=== PATIENT | female | born 1960 | race Caucasian/White ===

== ENCOUNTER 2018-01-03 12:36 | Observation (INO) | payer MEDICAID ==
[~2018-01-03] VITALS: Ht 160 cm; Wt 66.4 kg
--- NOTE | ~2018-01-03 | OP ---
PATIENT NAME: ALECIA SIERRA MEDICAL RECORD: [id number] :60 LOCATION:D.M2 D.2112 ADMISSION DATE:01/03/18 SURGEON: HCUCK SERVIN MD DATE OF OPERATION: 01/05/2018 PROCEDURES: 1. PTCA stent left circumflex. 2. Selective coronary angiography. INDICATION: Angina and coronary artery disease. PROCEDURE IN DETAIL: After informed consent was obtained, after detailed explanation of risks, benefits as well as alternative therapies, the patient was elected to proceed with angiogram and angioplasty. The right femoral area was prepped and draped in normal sterile fashion. The right femoral artery was cannulated via modified Seldinger technique with placement of 6-Guatemalan sheath. All catheters exchanged through this sheath. FINDINGS: The left circumflex has 75% stenosis proximally. This was addressed with a 3.0 x 12 mm Integrity stent. Result was 0% residual stenosis. We relooked at the right coronary artery. From previous intervention, there was no significant stenosis or restenosis. OVERALL IMPRESSION: Successful percutaneous transluminal coronary angioplasty stent of the left circumflex going from 75% initial stenosis to 0% residual. TRANSINT:[id number] Voice Confirmation ID: [id number] DOCUMENT ID: [id number] CHUCK SERVIN MD CC: [id number] DICTATION DATE: 01/05/18 1015 MOSAIC LAYER: 01/05/18 1022 ADM IN [place] [address] [place] [address]
--- NOTE | ~2018-01-03 | HEMODYNAMI ---
PATIENT:ALECIA SIERRA MEDICAL RECORD: [id number] : 60 [id number] AD[facility]ION DATE: 01/03/18 Generatedon:01/04/201813:48 Patient name: ALECIA SIERRA Patient #: [id number] SSN: DO B: 1960 Date of study: 01/04/2018 Page: Of Hemodynamic Procedure Report Patient Data Patient Demographics Procedure consent was obtained First Name: ALECIA Gender: Female Last Name: RIGO : 1960 Patient #: [id number] Age: 57 year(s) Race: Additional ID: [id number] Contact details Address: [address] [place] [address] [email or web address] State: [place] [facility] [place]: [address] Past Medical History Allergies Allergen Reaction Date Comments Reported Codeine 01/04/2018 Other allergy 01/04/2018 WELLBUTRIN, BUSPAR, LATEX, XANAX, ARITHROMYCIN Admission Admission Data Admission Date: 01/03/2018 Admission Time: 17:31 Room #: D.2112 Lab Results Lab Result Date: 01/04/2018 Lab Result Time: 0:00 Biochemistry Name Units Result Min Max BUN mg/dl 16 --(---*)-- 7 18 Creatinine mg/dl 0.9 --(-*--)-- 0.6 1.3 CBC Name Units Result Min Max Hemoglobin g/dl 11.1 *-(----)-- 13.5 17.5 Procedure Procedure Types Cath Procedure Diagnostic Procedure LHC LHC w/Coronaries PCI Procedure Coronary Stent Coronary Stent Initial Procedure Description Procedure Date Procedure Date: 01/04/2018 Procedure Start Time: 13:19 Procedure End Time: 13:47 Procedure Staff Name Function Alberto Stevenson MD Performing Physician Tiburcio Joya RT Monitor Rosaline Hitchcock RT Scrub Elisha Holloway RN Nurse Procedure Data Cath Procedure Fluoroscopy Diagnostic fluoroscopy Total fluoroscopy Time: 5.7 time: 5.7 min min Diagnostic fluoroscopy Total fluoroscopy dose: dose: 137.94 mGy 137.94 mGy Contrast Material Contrast Material Type Amount (ml) Isovue 300 109 Entry Location Entry Primary Successful Side Size Upsize Upsize Entry Closure Javed ccessful Closure Location (Fr) 1 (Fr) 2 (Fr) Remarks Device Remarks Radial Right 6 Fr Mechanical artery Short Compression Estimated blood loss: 10 ml Diagnostic catheters Device Type Used For End Catheter Placement DIAGNOSTIC [place] 110cm 5 Procedure Fr catheter ([id number]) Procedure Medications Medication Administration Route Dosage Oxygen NC 2 l/min Lidocaine 2% added to field 20 Heparin Flush Bag added to field 2 bags (1000units/500ml NS) 0.9% NaCl I.V. 100 ml/hr Versed I.V. 1 mg Fentanyl I.V. 50 mcg Versed I.V. 1 mg Fentanyl I.V. 50 mcg Radial Cocktail I.A. 1 syringe (Verapomil 2mg/Nitro 400mcg/Heparin 1500units) Versed I.V. 1 mg Fentanyl I.V. 50 mcg Nitroglycerin IC/IA I.C. 50 mcg Heparin Bolus I.V. 6500 units Versed I.V. 1 mg Fentanyl I.V. 50 mcg Plavix P.O. 600 mg Hemodynamics Rest HGB: 11.1 (g/dl) Heart Rate: 83 (bpm) Pressure Samples Time Site Value (mmHg) Purpose Heart Use Rate(bpm) 13:22 LV 92/9,13 Snapshot 77 Gradients Valve Time Site Site Mean SEP/DFP Peak To Heart Use 1 2 (mmHg) (sec/min) Peak Rate (mmHg) (bpm) Aortic 13:22 LV AO 77 Snapshots Pre Cath Intra NCS Post Cath Vital Signs Time Heart Resp SPO2 etCO2 NIBP (mmHg) Rhythm Pain Sedation Rate (ipm) (%) (mmHg) Status Level (bpm) 12:59:50 74 20 100 28.5 146/80(127) NSR 0 (11) 10(A) , No pain 13:04:02 68 18 96 37.5 123/74(101) NSR 0 (11) 10(A) , No pain 13:08:08 70 17 100 24.7 132/73(107) NSR 0 (11) 10(A) , No pain 13:12:18 73 16 100 33.7 124/71(101) NSR 0 (11) 10(A) , No pain 13:16:26 71 15 99 37.5 125/73(83) NSR 0 (11) 10(A) , No pain 13:20:35 70 17 99 30.5 115/67(91) NSR 0 (11) 9(A) , No pain 13:25:43 83 17 96 41.2 121/73(90) NSR 0 (11) 9(A) , No pain 13:29:49 81 16 98 44.2 122/71(99) NSR 0 (11) 9(A) , No pain 13:33:54 80 16 99 45 118/74(96) NSR 0 (11) 9(A) , No pain 13:37:58 82 15 100 43.5 124/75(87) NSR 0 (11) 9(A) , No pain 13:42:04 80 10 100 38.2 119/71(107) NSR 0 (11) 10(A) , No pain 13:46:57 83 13 100 44.2 127/73(106) NSR 0 (11) 9(A) , No pain Medications Time Medication Route Dose Verified Delivered Reason Note s Effectiveness by by 13:05:39 Oxygen NC 2 l/min Alberto Buffie used for Antwan Holloway RN procedure 13:05:46 Lidocaine 2% added 20ml Alberto Alberto for local to vial Antwan Stevenson MD anesthetic field 13:05:50 Heparin Flush added 2 bags Alberto Alberto used for Bag to Antwan Stevenson MD procedure (1000units/500ml field NS) 13:07:14 0.9% NaCl I.V. 100 Alberto Buffie Per physician ml/hr Antwan Holloway RN 13:14:28 Versed I.V. 1 mg Alberto Buffie for sedation Antwan Holloway RN 13:14:36 Fentanyl I.V. 50 mcg Alberto Buffie for sedation Antwan Holloway RN 13:18:16 Versed I.V. 1 mg Alberto Buffie for sedation Antwan Holloway RN 13:18:19 Fentanyl I.V. 50 mcg Alberto Buffie for sedation Antwan Holloway RN 13:21:23 Radial Cocktail I.A. 1 Alberto Alberto for (Verapomil syringe Antwan Stevenson MD vasodilation 2mg/Nitro 400mcg/Heparin 1500units) 13:21:29 Versed I.V. 1 mg Alberto Buffie for sedation Antwan Holloway RN 13:21:34 Fentanyl I.V. 50 mcg Alberto Buffie for sedation Antwan Holloway RN 13:33:45 Nitroglycerin I.C. 50 mcg Alberto Alberto for IC/IA Antwan Stevenson MD vasodilation 13:34:00 Heparin Bolus I.V. 6,500 Alberto Buffie for veri fied units Antwan Holloway RN anticoagulation with dr stevenson 13:37:49 Versed I.V. 1 mg Alberto Buffie for sedation Antwan Holloway RN 13:37:52 Fentanyl I.V. 50 mcg Alberto Buffie for sedation Antwan Holloway RN 13:46:03 Plavix P.O. 600 mg Alberto Buffie for Antwan Holloway RN antiplatelet therapy Procedure Log Time Note 12:35:30 Informed consent obtained and on chart 12:35:32 Diagnostic Cath Status : Elective 12:36:10 Tiburcio THAKKAR(R) (CV) sent for patient. Start room use. 12:36:12 Time tracking: Regular hours 12:36:20 Plan of Care:Hemodynamics will remain stable., Cardiac rhythm will remain stable., Comfort level will be maintained., Respiratory function will remain adequate., Patient/ family verbilizes understanding of procedure., Procedure tolerated without complication., Recovers from procedure without complications.. 12:52:00 Patient received from PCU to [facility] 3 Alert and oriented. Tansferred to table in Supine position. 12:52:01 Warm blankets applied, and amara hugger turned on for patient comfort. 12:52:02 Correct patient and procedure confirmed by team. 12:52:02 ECG and BP/O2 sat monitors applied to patient. 12:52:04 Full Disclosure recording started 12:58:43 Vital chart was started 13:03:07 Baseline sample Acquired. 13:03:11 Rhythm: sinus rhythm 13:03:33 H&P Date Dictated: 01/03/2018 Within 30 days and on chart.. 13:03:35 Pre-procedure instructions explained to patient. 13:03:35 Pre-op teaching completed and patient verbalized understanding. 13:03:39 Family in waiting room. 13:03:48 Patient NPO since Breakfast. 13:04:55 Patient allergic to Codeine 13:05:39 Oxygen 2 l/min NC was administered by Elisha Holloway RN; used for procedure; 13:05:46 Lidocaine 2% 20ml vial added to field was administered by Alberto Stevenson MD; for local anesthetic; 13:05:50 Heparin Flush Bag (1000units/500ml NS) 2 bags added to field was administered by Alberto Stevenson MD; used for procedure; 13:06:09 Patient allergic to Other allergy WELLBUTRIN, BUSPAR, LATEX, XANAX, ARITHROMYCIN 13:06:15 Is the patient allergic to Iodine/contrast media? No. 13:06:18 Is patient on blood thinner?No 13:06:25 Patient diabetic? No. 13:06:38 Patient not . Patient is over age 55. 13:06:40 ----Pre-sedation anethsthesia assessment.---- 13:06:42 Previous problem with sedation/anesthesia? No ? 13:06:44 Snore? Yes 13:06:46 Sleep apnea? No 13:06:47 Deviated septum? No 13:06:50 Opens mouth fully? Yes 13:06:51 Sticks out tongue? Yes 13:06:53 Airway obstruction? No ? 13:07:03 Dentures? Yes PARTIAL IN 13:07:13 Pre procedure: right dorsailis pedis pulse 2+ Normal; easily identifiable; not easily obliterated 13:07:14 0.9% NaCl 100 ml/hr I.V. was administered by Elisha Holloway RN; Per physician; 13:07:17 Modified Josep's test Ulnar < 7 seconds 13:07:21 Patient pain scale 0/10 ?. 13:07:49 IV patent on arrival in left antecubital with 0.9% NaCl at [facility]. 13:08:22 Lab Result : Creatinine 0.9 mg/dl 13:08:22 Lab Result : BUN 16 mg/dl 13:08:22 Lab Result : Hemoglobin 11.1 g/dl 13:08:26 Lab results completed and on chart. 13:08:31 Right Radial & Right Groin area was prepped with chlora-prep and draped in sterile fashion 13:08:33 Alarms reviewed by R. N. 13:08:33 Sharps counted by scrub and verified by R.N. 13:09:21 Use device set Radial Dx or PCI 13:09:22 ACIST Syringe (21446) opened to sterile field. 13:09:24 Medline Cath Pack ([id number]) opened to sterile field. 13:09:24 Bag Decanter (2002S) opened to sterile field. 13:09:26 SHEATH 6FR Slender ([id number]) opened to sterile field. 13:09:27 DIAGNOSTIC WIRE .035 260cm J wire (835148) opened to sterile field. 13:09:28 ACIST Hand Control (23859) opened to sterile field. 13:09:29 ACIST Manifold (52172) opened to sterile field. 13:09:29 Tegaderm 4 x 4 (1626W) opened to sterile field. 13:09:30 MBrace Wrist Support ([id number]) opened to sterile field. 13:12:55 Zero performed for pressure channel P1 13:13:13 Zero performed for pressure channel P1 13:13:29 Physician arrived 13:13:30 --------ALL STOP TIME OUT------ 13:13:30 Final Timeout: patient, procedure, and site verified with staff and physician. All members of the team are in agreement. 13:13:33 Right Radial & Right Groin site verified by team. 13:13:37 Physical assessment completed. ASA score P 2 - A patient with mild systemic disease as per Alberto Stevenson MD. 13:13:44 Sedation plan: IV Moderate Sedation Medication:Versed, Fentanyl 13:14:28 Versed 1 mg I.V. was administered by Elisha Holloway RN; for sedation; 13:14:36 Fentanyl 50 mcg I.V. was administered by Elisha Holloway RN; for sedation; 13:18:16 Versed 1 mg I.V. was administered by Elisha Holloway RN; for sedation; 13:18:19 Fentanyl 50 mcg I.V. was administered by Elisha Holloway RN; for sedation; 13:19:23 Procedure started. 13:19:32 Local anesthetic to right radial artery with Lidocaine 2% by Alberto Stevenson MD.INITIAL ACCESS ONLY 13:21:23 Radial Cocktail (Verapomil 2mg/Nitro 400mcg/Heparin 1500units) 1 syringe I.A. was administered by Alberto Stevenson MD; for vasodilation; 13:21:29 Versed 1 mg I.V. was administered by Elisha Holloway RN; for sedation; 13::33 A 6 Fr Short sheath was inserted into the Right Radial artery 13::34 Fentanyl 50 mcg I.V. was administered by Elisha Holloway RN; for sedation; 13:22:03 A DIAGNOSTIC [place] 110cm 5 Fr catheter ([id number]) was advanced over the wire and used for Procedure. 13::26 LV hemodynamics recorded. 13::28 LV gram done using MONGE 13::36 EF : 60 % 13:23:19 LCA angiography performed. 13:24:33 RCA angiography performed. 13:24:45 Catheter removed. 13:24:46 Proceeding to intervention. 13:25:28 GUIDE 6FR AR 1.0 catheter ([id number]) opened to sterile field. 13:25:30 TUBING High Pressure Extension Tubing (Antwan) (CP5104I) opened to sterile field. 13:25:33 INFLATOR Merit BasixCompak (HZ4237) opened to sterile field. 13:25:56 BMW 300cm [place] 2 J wire ([id number]) opened to sterile field. 13:28:32 6 Fr AR 1 guide catheter was inserted over the wire 13:29:41 Guide Catheter removed. unable to cannulate vessel. 13:30:39 GUIDE 6FR 3DRC catheter ([id number]) opened to sterile field. 13:31:06 6 Fr 3 DRC guide catheter was inserted over the wire 13:33:14 BMW wire advanced. 13:33:27 Wire advanced across lesion. 13:33:45 Nitroglycerin IC/IA 50 mcg I.C. was administered by Alberto Stevenson MD; for vasodilation; 13:34:00 Heparin Bolus 6,500 units I.V. was administered by Elisha Holloway RN; for anticoagulation; verified with dr stevenson 13:37:49 Versed 1 mg I.V. was administered by Elisha Holloway RN; for sedation; 13:37:52 Fentanyl 50 mcg I.V. was administered by Elisha Holloway RN; for sedation; 13:39:58 Inflation Number: 1 A INTEGRITY OTW 2.5 X 18 stent ([id number]) was prepped and advanced across the Mid RCA. The stent was deployed at 16 RADHA for 0:10 (min:sec). 13:40:46 Stent catheter was removed intact over wire. 13:40:47 Wire removed. 13:40:48 Guide catheter removed. 13:41:12 TR BAND Standard ([id number]) opened to sterile field. 13:42:25 Sheath removed intact; hemostasis achieved with Mechanical Compression to the Right Radial artery. 13:42:53 Procedure ended.(Physican Out) 13:43:21 Fluoroscopy time 05.70 minutes. 13:43:31 Flurop Dose total: 137.94 13:43:31 Fluoroscopy dose: 137.94 mGy 13:43:52 Contrast amount:Isovue 300 109ml. 13:43:54 Sharps counted by scrub and verified by R.N. 13:44:35 Procedure type changed to Cath procedure, Diagnostic procedure, LHC, LHC w/Coronaries, PCI procedure, Coronary Stent, Coronary Stent Initial 13:44:48 TR band inflated with 12cc of air. 13:44:49 Insertion/operative site no bleeding no hematoma. 13:44:55 Post right radial artery:stable 13:45:03 Post-procedure physical assessment completed. ASA score P 2 - A patient with mild systemic disease as per Alberto Stevenson MD. 13:45:06 Post procedure rhythm: sinus rhythm 13:45:09 Estimated blood loss: 10 ml 13:45:11 Post procedure instruction explained to patient.Patient verbalizes understanding. 13:45:12 Patient needs reinforcement of post procedure teaching. 13:45:12 Procedure and supply charges have been captured, reviewed, submitted and are correct. 13:46:03 Plavix 600 mg P.O. was administered by Elisha Holloway RN; for antiplatelet therapy; 13:47:08 Vital chart was stopped 13:47:08 See physician's report for complete and final results. 13:47:11 Report given to PCU. 13:47:15 Patient transfered to PCU with Bed. 13:47:17 Procedure ended. 13:47:17 Full Disclosure recording stopped 13:47:21 End room use (Document Last) Intervention Summary Intervention Notes Time ActionType Lesion and Equipment Action# Pressure Duration Attributes Used 13:39:58 Place stent Mid RCA INTEGRITY 1 16 00:10 OTW 2.5 X 18 stent ([id number]) Device Usage Item Name Manufacture Quantity Catalog Hospital Part Current Minima l Lot# / Number Charge Number Stock Stock Serial# Code ACIST Acist 1 98359 722837 728464 722513 20 Syringe Medical (32852) Systems Inc Medline Cath Cardinal 1 [id number] 042710 63872 615646 5 Pack Health ([id number]) Bag Decanter Microtek 1 2001S 530331 15334 779048 5 () Medical Inc. SHEATH 6FR Terumo 1 [id number] 572177 623145 830863 40 Slender ([id number]) DIAGNOSTIC St Xander 1 772642 733938 236753 581253 30 WIRE .035 260cm J wire (987162) ACIST Hand Acist 1 53879 266505 992670 390097 5 Control Medical (75052) Systems Inc ACIST Acist 1 65316 844131 322985 491531 5 Manifold Medical (62671) Systems Inc Tegaderm 4 x 3M 1 1626W 653077 447412 107700 5 4 (1626W) MBrace Wrist Advanced 1 140-0250-00 267386 19741 122390 5 Support Vascular (109129339) Dynamics DIAGNOSTIC Terumo 1 40-5013 592991 154162 360381 5 [place] 110cm 5 Fr catheter (942396) GUIDE 6FR AR Medtronic 1 [id number] 162769 20033 973252 1 1.0 catheter ([id number]) TUBING High Merit 1 [id number] 112914 47480 945598 10 Pressure Medical Extension Tubing (Stevenson) (VG3240K) INFLATOR Merit 1 SU6597 455956 511006 461750 15 Merit Medical BasixCompak (NB8726) BMW 300cm Herbert 1 [id number] 372208 730205 285912 5 [place] 2 Vascular J wire (5286764O) GUIDE 6FR Medtronic 1 [id number] 138345 239380 830252 1 3DRC catheter (BA48XGB) INTEGRITY Medtronic 1 [id number] 087225 616573 7 [id number] OTW 2.5 X 18 stent ([id number]) TR BAND Terumo 1 [id number] 165897 488198 128906 40 Standard ([id number]) Signature Audit [place] Stage Time Signature Unsigned Intra-Procedure 01/04/2018 Tiburcio Joya 1:47:51 PM RT(R) (CV) Signatures Monitor : Tiburcio Joya RT Signature : Date : Time : [place] [address] [place] [address]
--- NOTE | ~2018-01-03 | DS ---
PATIENT:ALECIA ROBLEDO :60 MEDICAL RECORD: [id number] DISCHARGE SUMMARY ADMISSION DATE: 01/03/18 DISCHARGE DATE: DATE OF SERVICE: 01/05 DIAGNOSES: 1. Angina. 2. Coronary artery disease. 3. Percutaneous transluminal coronary angioplasty stent right coronary artery and left circumflex this admission. HOSPITAL COURSE: Ms. Robledo presents with anginal symptomatology, found to have 3-vessel coronary artery disease, underwent successful PTCA stent of above territories, discharged home with the addition of aspirin and Plavix to her medical regimen and to follow up with [facility] in 1 month. TRANSINT:[id number] Voice Confirmation ID: [id number] DOCUMENT ID: [id number] CHUCK SERVIN MD CC: [id number] DICTATION DATE: 01/05/18 1013 ANIMAL CRUELTY INVESTIGATION SUPERVISOR: 01/05/18 1024 ADM IN [facility] [address] [place] [address]
--- NOTE | ~2018-01-03 | HEMODYNAMI ---
PATIENT:ALECIA SIERRA MEDICAL RECORD: [id number] : 60 LOCATION:[facility] D[facility] [id number] ADMISSION DATE: 01/03/18 Generatedon:01/05/201810:15 Patient name: ALECIA SIERRA Patient #: [id number] SSN: DO B: 1960 Date of study: 01/05/2018 Page: Of Hemodynamic Procedure Report Patient Data Patient Demographics Procedure consent was obtained First Name: ALECIA Gender: Female Last Name: RIGO : 1960 Patient #: [id number] Age: 57 year(s) Race: Additional ID: [id number] Contact details Address: [address] [place] [address] [employer] [address] State: [place] City: [facility] Zip code: [address] Past Medical History Allergies Allergen Reaction Date Comments Reported Codeine 01/04/2018 Other allergy 01/04/2018 WELLBUTRIN, BUSPAR, LATEX, XANAX, ARITHROMYCIN Admission Admission Data Admission Date: 01/03/2018 Admission Time: 17:31 Arrival Date: 01/05/2018 Arrival Time: 0:00 Admit Source: Other Insurance Payor: Medicaid Room #: D.2112 Weight (lbs.): 145.51 Weight (kg.): 66 Lab Results Lab Result Date: 01/04/2018 Lab Result Time: 0:00 Biochemistry Name Units Result Min Max BUN mg/dl 16 --(---*)-- 7 18 Creatinine mg/dl 0.9 --(-*--)-- 0.6 1.3 CBC Name Units Result Min Max Hemoglobin g/dl 11.1 *-(----)-- 13.5 17.5 Procedure Procedure Types Cath Procedure Diagnostic Procedure LHC Coronaries only FFR/IVUS Intra-Coronary IVUS Initial PCI Procedure Coronary Stent Coronary Stent Initial Procedure Description Procedure Date Procedure Date: 01/05/2018 Procedure Start Time: 9:59 Procedure End Time: 10:12 Procedure Staff Name Function Thien Ruff MD Performing Physician Michelle Nicole RT Monitor Rosaline Hitchcock RT Scrub Elisha Holloway RN Nurse Danielle Wilkinosn RN Nurse Procedure Data Cath Procedure Fluoroscopy Diagnostic fluoroscopy Total fluoroscopy Time: 2.9 time: 2.9 min min Diagnostic fluoroscopy Total fluoroscopy dose: 157 dose: 157 mGy mGy Contrast Material Contrast Material Type Amount (ml) Isovue 300 53 Entry Location Entry Primary Successful Side Size Upsize Upsize Entry Closure Succes sful Closure Location (Fr) 1 (Fr) 2 (Fr) Remarks Device Remarks Femoral Right 6 Fr Exoseal artery Short Estimated blood loss: 5 ml Diagnostic catheters Device Type Used For End Catheter Placement DIAGNOSTIC 3DRC 5Fr Right Coronary catheter ([id number]) Angiography Procedure Complications No complications Procedure Medications Medication Administration Route Dosage 0.9% NaCl I.V. 100 ml/hr Oxygen NC 2 l/min Lidocaine 2% added to field 20 Heparin Flush Bag added to field 2 bags (1000units/500ml NS) Plavix P.O. 75 mg Fentanyl I.V. 100 mcg Versed I.V. 2 mg Heparin Bolus I.V. 4000 units Versed I.V. 1 mg Fentanyl I.V. 50 mcg Fentanyl I.V. 50 mcg Versed I.V. 1 mg Hemodynamics Rest HGB: 11.1 (g/dl) Heart Rate: 83 (bpm) Snapshots Pre Cath Intra NCS Post Cath Vital Signs Time Heart Resp SPO2 etCO2 NIBP (mmHg) Rhythm Pain Sedation Rate (ipm) (%) (mmHg) Status Level (bpm) 9:49:31 85 17 100 30.7 136/74(105) NSR 0 (11) 10(A) , No pain 9:54:12 81 16 100 29.2 129/70(108) NSR 0 (11) 10(A) , No pain 9:58:50 73 16 98 11.2 113/66(91) NSR 0 (11) 10(A) , No pain 10:03:27 83 18 98 0 101/65(83) NSR 0 (11) 9(A) , No pain 10:08:01 86 16 98 26.9 111/62(95) NSR 0 (11) 9(A) , No pain 10:12:40 86 18 100 12.7 97/54(81) NSR 0 (11) 10(A) , No pain Medications Time Medication Route Dose Verified Delivered Reason Not es Effectiveness by by 9:42:55 0.9% NaCl I.V. 100ml/hr Thien Santos used for Speedy Wilkinson RN procedure 9:43:05 Oxygen NC 2 l/min Thien Santos Per physician Speedy Wilkinson RN 9:43:15 Lidocaine 2% added 20ml Thien Neumann for local to vial Speedy Ruff MD anesthetic field 9:43:21 Heparin Flush added 2 bags Thien Neumann used for Bag to Speedy Ruff MD procedure (1000units/500ml field NS) 9:43:34 Plavix P.O. 75 mg Thien Santos for Speedy Wilkinson RN antiplatelet therapy 10:00:44 Fentanyl I.V. 100 mcg Thien Santos for sedation Speedy Wilkinson RN 10:00:52 Versed I.V. 2 mg Thien Santos for sedation Speedy Wilkinson RN 10:00:53 Heparin Bolus I.V. 4000 Thien Santos for adarsh ified units Speedy Wilkinson RN anticoagulation by 10:02:28 Versed I.V. 1 mg Thien Santos for sedation adarsh suzie Wilkinson RN by 10:02:51 Fentanyl I.V. 50 mcg Thien Santos for sedation adarsh suzie Wilkinson RN by 10:05:37 Fentanyl I.V. 50 mcg Thien Santos for sedation Speedy Wilkinson RN 10:10:22 Versed I.V. 1 mg Thien Santos for sedation Speedy Wilkinson RN Procedure Log Time Note 9:29:53 Elisha Holloway RN sent for patient. Start room use. 9:29:54 Time tracking: Call back 9:30:00 Plan of Care:Hemodynamics will remain stable., Cardiac rhythm will remain stable., Comfort level will be maintained., Respiratory function will remain adequate., Patient/ family verbilizes understanding of procedure., Procedure tolerated without complication., Recovers from procedure without complications.. 9:39:09 Patient received from PCU to CCL 1 Alert and oriented. Tansferred to table in Supine position. 9:39:10 Warm blankets applied, and amara hugger turned on for patient comfort. 9:39:11 Correct patient and procedure confirmed by team. 9:39:12 Signed procedure consent form obtained from patient. 9:39:13 ECG and BP/O2 sat monitors applied to patient. 9:39:14 Full Disclosure recording started 9:42:40 Procedure type changed to Cath procedure, Diagnostic procedure, LHC, Coronaries only, FFR/IVUS, Intra-Coronary IVUS Initial, PCI procedure, Coronary Stent, Coronary Stent Initial 9:42:55 0.9% NaCl 100ml/hr I.V. was administered by Danielle Wilkinson RN; used for procedure; 9:43:05 Oxygen 2 l/min NC was administered by Danielle Wilkinson RN; Per physician; 9:43:15 Lidocaine 2% 20ml vial added to field was administered by Thien Ruff MD; for local anesthetic; 9:43:21 Heparin Flush Bag (1000units/500ml NS) 2 bags added to field was administered by Thien Ruff MD; used for procedure; 9:43:34 Plavix 75 mg P.O. was administered by Danielle Wilkinson RN; for antiplatelet therapy; 9:48:39 Vital chart was started 9:48:41 Baseline sample Acquired. 9:48:45 Rhythm: sinus rhythm 9:48:54 H&P Date Dictated: 01/05/2018 Within 30 days and on chart.. 9:48:55 Pre-procedure instructions explained to patient. 9:48:56 Pre-op teaching completed and patient verbalized understanding. 9:48:57 Family in waiting room. 9:48:58 Patient NPO since Midnight. 9:49:01 Is the patient allergic to Iodine/contrast media? No. 9:49:02 Was the patient premedicated? No 9:49:03 Is patient on blood thinner?Yes 9:49:06 ACC The patient was administered the following blood thiners within the last 24 hours: ACCPlavix 9:49:19 Patient diabetic? No. 9:49:22 Previous problem with sedation/anesthesia? No ? 9:49:24 Snore? Yes 9:49:25 Sleep apnea? No 9:49:26 Deviated septum? No 9:49:28 Opens mouth fully? Yes 9:49:29 Sticks out tongue? Yes 9:49:31 Airway obstruction? No ? 9:49:36 Dentures? Yes in tight 9:49:41 Pre procedure: right dorsailis pedis pulse 2+ Normal; easily identifiable; not easily obliterated 9:49:43 Pre procedure: left dorsailis pedis pulse 2+ Normal; easily identifiable; not easily obliterated 9:49:45 Patient pain scale 0/10 ?. 9:49:58 IV patent on arrival in left antecubital with 0.9% NaCl at O. 9:50:01 Lab results completed and on chart. 9:50:05 Right groin area was prepped with chlora-prep and draped in sterile fashion 9:50:07 Alarms reviewed by R. N. 9:50:07 Sharps counted by scrub and verified by R.N. 9:53:17 Diagnostic Cath Status : Elective 9:54:44 Admit Source: Other 9:54:46 Arrival Date: 01/05/2018 12:00:00 AM 9:54:53 Patient Weight : 145.51 lbs 9:55:01 Insurance Payor : Medicaid 9:55:11 Physician paged 9:56:38 Zero performed for pressure channel P1 9:56:57 Zero performed for pressure channel P1 9:57:58 Physician arrived 9:57:59 --------ALL STOP TIME OUT------ 9:57:59 Final Timeout: patient, procedure, and site verified with staff and physician. All members of the team are in agreement. 9:58:04 Right groin site verified by team. 9:58:08 Physical assessment completed. ASA score P 2 - A patient with mild systemic disease as per Thien Ruff MD. 9:58:14 Sedation plan: IV Moderate Sedation Medication:Versed, Fentanyl 9:58:29 Use device set Femoral Dx 9:58:30 ACIST Syringe (67895) opened to sterile field. 9:58:31 Bag Decanter (2001S) opened to sterile field. 9:58:32 Medline Cath Pack ([id number]) opened to sterile field. 9:58:34 DIAGNOSTIC WIRE .035 260cm J wire (537802) opened to sterile field. 9:58:35 ACIST Manifold (89640) opened to sterile field. 9:58:37 Tegaderm 4 x 4 (1626W) opened to sterile field. 9:58:59 SHEATH 6FR [place] (HBN366) opened to sterile field. 9:59:22 GRAPHIX 182cm guide wire ([id number]) opened to sterile field. 9:59:36 INFLATOR Merit Rosek (LI7691) opened to sterile field. 9:59:49 Procedure started. 9:59:52 Local anesthetic to right femoral artery with Lidocaine 2% by Thien Ruff MD.INITIAL ACCESS ONLY 10:00:03 A 6 Fr Short sheath was inserted into the Right Femoral artery 10:00:44 Fentanyl 100 mcg I.V. was administered by Danielle Wilkinson RN; for sedation; 10:00:52 Versed 2 mg I.V. was administered by Danielle Wilkinson RN; for sedation; 10:00:53 Heparin Bolus 4000 units I.V. was administered by Danielle Wilkinson RN; for anticoagulation; verified by 10:02:00 A DIAGNOSTIC 3DRC 5Fr catheter ([id number]) was advanced over the wire and used for Right Coronary Angiography. 10:02:13 RCA angiography performed. 10:02:14 Catheter removed. 10:02:20 GUIDE 6FR XB 3.5 catheter ([id number]) opened to sterile field. 10:02:28 Versed 1 mg I.V. was administered by Danielle Wilkinson RN; for sedation; verified by 10:02:32 6 Fr xb 3.5 guide catheter was inserted over the wire 10:02:51 Fentanyl 50 mcg I.V. was administered by Danielle Wilkinson RN; for sedation; verified by 10:02:51 LCA angiography performed. 10:02:54 Injector settings: Ml/sec: 3, Volume: 6, 10:03:39 pt graphix wire advanced. 10:05:30 Inflation Number: 1 A INTEGRITY RX 3.0 x 12 stent ([id number]) was prepped and advanced across the Prox CX. The stent was deployed at 13 RADHA for 0:10 (min:sec). 10:05:36 Stent catheter was removed intact over wire. 10:05:37 Fentanyl 50 mcg I.V. was administered by Danielle Wilkinson RN; for sedation; 10:05:40 Wire removed. 10:05:41 Guide catheter removed. 10:05:44 GUIDE 6FR JL 3.5 guide catheter ([id number]) opened to sterile field. 10:05:52 6 Fr jl 3.5 guide catheter was inserted over the wire 10:06:06 pt graphix wire advanced. 10:07:48 Wire advanced across lesion. 10:07:57 [place] IVUS Catheter (25591L) opened to sterile field. 10:08:17 IVUS catheter advanced over wire. 10:09:43 IVUS catheter removed over wire. 10:10:04 EXOSEAL 6Fr (EX600) opened to sterile field. 10:10:11 Wire removed. 10:10:12 Guide catheter removed. 10:10:20 Sheath removed intact; hemostasis achieved with Exoseal to the Right Femoral artery. 10:10:22 Versed 1 mg I.V. was administered by Danielle Wilkinson RN; for sedation; 10:10:26 Procedure ended.(Physican Out) 10:11:30 Fluoroscopy time 02.90 minutes. 10:11:38 Flurop Dose total: 157 10:11:38 Fluoroscopy dose: 157 mGy 10:11:43 Contrast amount:Isovue 300 53ml. 10:11:44 Sharps counted by scrub and verified by R.N. 10:11:47 Insertion/operative site no bleeding no hematoma. 10:11:49 Post-op/insertion site Right Femoral artery dressed using a 4 x 4 and Tegaderm. 10:11:51 Post right femoral artery:stable 10:11:54 Post Procedure Pulses reassessed and unchanged 10:11:57 Post procedure rhythm: unchanged. 10:12:06 Estimated blood loss: 5 ml 10:12:08 Post procedure instruction explained to patient.Patient verbalizes understanding. 10:12:09 Patient needs reinforcement of post procedure teaching. 10:12:10 Procedure and supply charges have been captured, reviewed, submitted and are correct. 10:12:14 Procedure Complication : No complications 10:12:16 Vital chart was stopped 10:12:17 See physician's report for complete and final results. 10:12:28 Report given to Pre/Post Procedure Room. 10:12:32 Patient transfered to [facility] with Stretcher. 10:12:34 Procedure ended. 10:12:34 Full Disclosure recording stopped 10:12:41 ACC-PCI Only Patient was given prescriptions, or instructed by Thien Ruff MD to start/continue the following medications upon discharge: Plavix 10:12:43 End room use (Document Last) 10:14:59 10 mins total sedation time Intervention Summary Intervention Notes Time ActionType Lesion and Equipment Action# Pressure Duration Attributes Used 10:05:30 Place stent Prox CX INTEGRITY RX 1 13 00:10 3.0 x 12 stent ([id number]) Device Usage Item Name Manufacture Quantity Catalog Number Hospital Part Current Mini mal Lot# / Charge Number Stock Stock Serial# Code ACIST Acist 1 45263 773592 790401 140472 20 Syringe Medical (18101) Systems Inc Bag Decanter Microtek 1 2002S 640135 69635 868062 5 (2001S) Medical Inc. Medline Cath Cardinal 1 [id number] 536167 41787 535686 5 Pack Health ([id number]) DIAGNOSTIC St Xander 1 572231 930103 744680 646663 30 WIRE .035 260cm J wire (687666) ACIST Acist 1 33777 127733 519411 181371 5 Manifold Medical (14058) Systems Inc Tegaderm 4 x 3M 1 1626W 460960 217584 045178 5 4 (1626W) SHEATH 6FR Terumo 1 DDK470 561176 968942 094939 40 [place] (GHD598) GRAPHIX [place] 1 [id number] 106278 210138 280385 5 182cm guide Scientific wire ([id number]) INFLATOR Merit 1 IT2068 020334 747629 723146 15 [facility] Medical BasixCompak (AQ1411) DIAGNOSTIC Cardinal 1 [id number] 330203 696916 171403 9 3DRC 5Fr Health catheter (981734G) GUIDE 6FR XB Cardinal 1 [id number] 868983 407352 296989 2 3.5 catheter Health (99087988) INTEGRITY RX Medtronic 1 [id number] 451935 971753 792920 5 [id number] 3.0 x 12 stent ([id number]) GUIDE 6FR JL Medtronic 1 [id number] 528028 47913 119378 1 3.5 guide catheter ([id number]) [place] 1 [id number] 540409 118479 406521 8 [place] E[place] IVUS Catheter (78168G) EXOSEAL 6Fr Cardinal 1 EX600 957620 828998 656392 10 (EX600) Health Signature Audit [place] Stage Time Signature Unsigned Intra-Procedure 01/05/2018 Michelle Nicole 10:15:33 AM RT(R) Signatures Monitor : Michelle Nicole RT Signature : Date : Time : [address] [address]
[2018-01-03 13:12] LABS: BASOPHILS 0.3 % (0-2); EOSINOPHILS 0.9 % (0-7); HEMATOCRIT 38.9 % (36.0-48.0); HEMOGLOBIN 12.3 g/dL (12-16); LYMPHOCYTES 20.5 % (15-50); MCH 27.6 pg (26.0-34.0); MCHC 31.6 g/dL (31.0-37.0); MCV 87.4 fL (80.0-100.0); MEAN PLATELET VOLUME 9.8 fL (7.4-10.4); MONOCYTES 6.8 % (2-11); NEUTROPHILS 71.5 % (40-80); PLATELET COUNT 246 10x3/uL (130-400); RBC 4.45 10x6/uL (4.00-5.40); RDW 13.9 % (11.5-14.5); WBC 7.6 10x3/uL (4.8-10.8)
[2018-01-03 13:32] LABS: ALBUMIN 3.9 g/dL (3.4-5.0); ALKALINE PHOSPHATASE 77 U/L (46-116); ALT (SGPT) 34 U/L (10-68); BILIRUBIN - TOTAL 1.05 mg/dL (0.2-1.3); CALC OSMOLALITY 277 mosm/kg (275-300); CALCIUM 10.3 mg/dL (8.5-10.1); CARBON DIOXIDE 27.1 mmol/L (21.0-32.0); CHLORIDE - SERUM 105 mmol/L (98-107); CREATININE - SERUM 0.7 mg/dL (0.6-1.3); GLUCOSE 102 mg/dL (74-106); POTASSIUM - SERUM 3.8 mmol/L (3.5-5.1); PROTEIN - SERUM 7.2 g/dL (6.4-8.2); SODIUM 140 mmol/L (136-145); UREA NITROGEN 9 mg/dL (7-18); eGFR NON AFRICAN AMERICAN > 90 mL/min (90-120)
[2018-01-03 13:34] LABS: AMYLASE - SERUM 57 U/L (25-115); LIPASE 125 U/L (73-393)
[2018-01-03 13:45] LABS: APPEARANCE SLT CLOUDY (CLEAR); BACTERIA MANY /hpf (NONE SEEN); BILIRUBIN NEGATIVE (NEGATIVE); COLOR YELLOW (YELLOW); GLUCOSE NEGATIVE (NEGATIVE); KETONE NEGATIVE (NEGATIVE); NITRITE NEGATIVE (NEGATIVE); PROTEIN NEGATIVE (NEGATIVE); RED CELLS - URINE 0-5 /hpf (0-5); UROBILINOGEN NORMAL (NORMAL); WHITE CELLS - URINE 0-5 /hpf (0-5); YEAST <1+ /hpf (NONE SEEN)
[2018-01-03 15:27] LABS: CKMB 0.9 U/L (0.0-3.6); CREATINE KINASE 58 UL (21-215)
[2018-01-03 15:32] LABS: TROPONIN-I < 0.017 ng/mL (0.000-0.060)
[2018-01-03 16:15] LABS: UDS - AMPHET NEGATIVE QUAL (NEGATIVE); UDS - BARB NEGATIVE QUAL (NEGATIVE); UDS - BENZO NEGATIVE QUAL (NEGATIVE); UDS - COCAINE NEGATIVE QUAL (NEGATIVE); UDS - OPIATE NEGATIVE QUAL (NEGATIVE); UDS - PCP NEGATIVE QUAL (NEGATIVE); UDS - THC NEGATIVE QUAL (NEGATIVE)
[2018-01-03] MEDS ORDERED: KLONOPIN1 MG PO (22:40)
[2018-01-03] MEDS ORDERED: PROAIR HFA8.5 GM INH (22:41)
[2018-01-03] MEDS ORDERED: SPIRIVA18 MCG INH (22:42)
[2018-01-03] MEDS ORDERED: COMBIVENT RESPIM4 GM INH (22:43)
[2018-01-03 23:19] VITALS: BP 108/62; Ht 160 cm; Wt 66.4 kg
[2018-01-04] VITALS: BP 104/55
[2018-01-04 04:00] VITALS: BP 93/54
[2018-01-04 07:58] LABS: BASOPHILS 0.4 % (0-2); EOSINOPHILS 1.6 % (0-7); HEMATOCRIT 34.9 % (36.0-48.0); HEMOGLOBIN 11.1 g/dL (12-16); IMMATURE GRANULOCYTES 0.2 % (0-5); LYMPHOCYTES 25.9 % (15-50); MCH 28.4 pg (26.0-34.0); MCHC 31.8 g/dL (31.0-37.0); MCV 89.3 fL (80.0-100.0); MEAN PLATELET VOLUME 9.9 fL (7.4-10.4); NEUTROPHILS 62.9 % (40-80); RBC 3.91 10x6/uL (4.00-5.40); RDW 14.1 % (11.5-14.5); WBC 5.7 10x3/uL (4.8-10.8)
[2018-01-04 08:06] LABS: PLATELET COUNT 185 10x3/uL (130-400)
[2018-01-04 08:16] LABS: ANION GAP 12.1 mmol/L (8-16); CALCIUM 9.5 mg/dL (8.5-10.1); CARBON DIOXIDE 28.9 mmol/L (21.0-32.0)
[2018-01-04 08:25] LABS: CREATININE - SERUM 0.9 mg/dL (0.6-1.3)
[2018-01-04 09:10] VITALS: BP 122/69
[2018-01-04 12:55] VITALS: BP 101/61
[2018-01-04 18:30] VITALS: BP 144/81
[2018-01-04 20:54] VITALS: BP 103/58
[2018-01-05 06:52] VITALS: BP 122/60
[2018-01-05 10:06] VITALS: BP 126/70
[2018-01-05] MEDS ORDERED: PLAVIX75 MG PO (12:15)
[2018-01-05 12:31] VITALS: BP 110/65
== END 2018-01-05 16:45 | disposition home or self-care (01) ==
LOC: D.ER 12:36 → D.M2 17:31 → D.SDCHOLD 17:31 → D.M2 17:31 → OBSVTIME 17:31 → D.M2 20:08
PROVIDERS: Emergency Medicine; Internal Medicine Cardiovascular Disease
DX: I25.110 Atherosclerotic heart disease of native coronary artery with unstable angina pectoris (principal); Z86.73 Personal history of transient ischemic attack (TIA), and cerebral infarction without residual deficits; J44.9 Chronic obstructive pulmonary disease, unspecified; Z87.891 Personal history of nicotine dependence

== ENCOUNTER 2018-02-25 10:47 | Emergency (ER) | payer MEDICAID ==
[2018-01-03 23:19] VITALS: BMI 25.9
[~2018-02-25 10:47] MED LIST: COMBIVENT RESPIM4 GM INH; KLONOPIN1 MG PO; PLAVIX75 MG PO; PROAIR HFA8.5 GM INH; SPIRIVA18 MCG INH
[2018-02-25 11:14] LABS: BASOPHILS 0.2 % (0-2); EOSINOPHILS 1.8 % (0-7); HEMATOCRIT 29.5 % (36.0-48.0); HEMOGLOBIN 9.2 g/dL (12-16); IMMATURE GRANULOCYTES 0.2 % (0-5); MCH 26.8 pg (26.0-34.0); MCHC 31.2 g/dL (31.0-37.0); MEAN PLATELET VOLUME 9.8 fL (7.4-10.4); MONOCYTES 6.4 % (2-11); NEUTROPHILS 69.4 % (40-80); RBC 3.43 10x6/uL (4.00-5.40); RDW 13.8 % (11.5-14.5)
[2018-02-25 11:20] LABS: PLATELET COUNT 230 10x3/uL (130-400)
[2018-02-25 11:50] LABS: ALBUMIN 2.8 g/dL (3.4-5.0); ALKALINE PHOSPHATASE 47 U/L (46-116); ALT (SGPT) 11 U/L (10-68); BILIRUBIN - TOTAL 0.63 mg/dL (0.2-1.3); CALC OSMOLALITY 282 mosm/kg (275-300); CALCIUM 7.1 mg/dL (8.5-10.1); CARBON DIOXIDE 22.1 mmol/L (21.0-32.0); CHLORIDE - SERUM 113 mmol/L (98-107); CHOL - HDL RATIO 4.1 ratio (2.3-4.1); CHOLESTEROL, TOTAL 130 mg/dL (0-200); CREATINE KINASE 60 UL (21-215); CREATININE - SERUM 0.6 mg/dL (0.6-1.3); GLUCOSE 70 mg/dL (74-106); HDL CHOLESTEROL 32 mg/dL (32-96); LDL CHOLESTEROL 82 mg/dL (0-100); LDL-HDL RATIO 2.6 ratio (1.5-3.5); PROTEIN - SERUM 5.4 g/dL (6.4-8.2); SODIUM 144 mmol/L (136-145); TRIGLYCERIDE 84 mg/dL (30-200); TROPONIN-I < 0.017 ng/mL (0.000-0.060); UREA NITROGEN 7 mg/dL (7-18); eGFR NON AFRICAN AMERICAN > 90 mL/min (90-120)
== END 2018-02-25 16:45 | disposition home or self-care (01) ==
LOC: D.ER 10:47
PROVIDERS: Emergency Medicine
DX: M94.0 Chondrocostal junction syndrome [Tietze] (principal); R00.1 Bradycardia, unspecified; I10 Essential (primary) hypertension; J44.9 Chronic obstructive pulmonary disease, unspecified; G40.909 Epilepsy, unspecified, not intractable, without status epilepticus